=== PATIENT | female | born 1970 | race Caucasian/White ===

== ENCOUNTER 2019-08-05 10:08 | Emergency (ER) | payer OTHER | END 2019-08-05 11:25 | disposition home or self-care (01) | LOC: NAV ERS 10:08 | DX: T21.11XA Burn of first degree of chest wall, initial encounter (principal); T22.10XA Burn of first degree of shoulder and upper limb, except wrist and hand, unspecified site, initial encounter; T31.0 Burns involving less than 10% of body surface; X11.8XXA Contact with other hot tap-water, initial encounter | CPT/HCPCS: 99283 ==

== ENCOUNTER 2020-08-04 14:47 | Emergency (ER) | payer BC, SELFPAY ==
[2020-08-04] MEDS ORDERED: Ondansetron PF 4 MG/2 ML Vial ONE (15:27)
[2020-08-04] MEDS ORDERED: Sodium Chloride 0.9% 1,000 ML ONE (15:27)
[2020-08-04 15:53] LABS: #Lymphocytes 0.6 thou/uL (1.20-3.40); #Monocytes 0.3 thou/uL (0.11-0.59); #Neutrophils 8.8 thou/uL (1.40-6.50); %Basophils 0.2 % (0.0-1.0); %Lymphocytes 6.2 % (21.0-51.0); %Monocytes 2.8 % (0.0-10.0); %Neutrophils 90.7 % (42.0-75.0); Hemoglobin 15.6 g/dL (12.0-16.0); Mean Corpuscular HGB CONC 33.1 g/dL (32.0-36.0); Mean Corpuscular Hemoglobin 27.6 pg (27.0-31.0); Mean Corpuscular Volume 83.5 fL (78.0-98.0); Mean Platelet Volume 6.3 fL (7.4-10.4); Platelet Count 248 thou/uL (130-400); RBC Distribution Width 12.2 % (11.5-14.5); Red Blood Cell (RBC) Count 5.65 mill/uL (4.20-5.40); White Blood Cell (WBC) Count 9.7 thou/uL (4.8-10.8)
[2020-08-04 16:08] LABS: ALT (SGPT) 929 U/L (8-55); AST (SGOT) 338 U/L (5-34); Albumin 4.4 g/dL (3.5-5.0); Alkaline Phosphatase 241 U/L (40-110); Anion Gap 17 mmol/L (10-20); BUN (Urea Nitrogen) 13 mg/dL (9.8-20.1); Bilirubin, Total 6.3 mg/dL (0.2-1.2); Calc. Creatinine Clearance 0 mL/min (70-130); Calcium 9.5 mg/dL (7.8-10.44); Carbon Dioxide 22 mmol/L (22-29); Chloride 105 mmol/L (98-107); Globulin 3.3 g/dL (2.4-3.5); Glucose 177 mg/dL (70-105); Potassium 3.8 mmol/L (3.5-5.1); Protein, Total 7.7 g/dL (6.0-8.3); Sodium 140 mmol/L (136-145)
[2020-08-04 16:38] LABS: Lipase 5210 U/L (8-78)
== END 2020-08-04 17:31 | disposition short-term general hospital (02) ==
LOC: NAV ERS 14:47
DX: K80.50 Calculus of bile duct without cholangitis or cholecystitis without obstruction (principal); K85.10 Biliary acute pancreatitis without necrosis or infection
CPT/HCPCS: 80053; 83690; 85025; 96361; 96372; 96374; J0500; J2405; J7050